=== PATIENT | male | born 2000 | race African-American/Black ===

== ENCOUNTER 2022-05-25 11:11 | Emergency (ER) | payer OTHER ==
[~2022-05-25] VITALS: Ht 154.9 cm; Wt 67.6 kg
[2022-05-25 11:18] VITALS: BP_SYST 123
[2022-05-25] MEDS ORDERED: LORazepam 1 MG TABLET PO ONE (11:30)
[2022-05-25 12:02] LABS: CALCIUM 8.6 mg/dL (8.4-11.0); CREATININE 1.18 mg/dL (0.55-1.30)
[2022-05-25 13:03] VITALS: BP_SYST 106
== END 2022-05-25 13:36 | disposition home or self-care (01) ==
LOC: SED 11:11
DX: G40.909 Epilepsy, unspecified, not intractable, without status epilepticus (principal); F12.90 Cannabis use, unspecified, uncomplicated
CPT/HCPCS: 36415; 80048; 93005; 99284